=== PATIENT | female | born 1980 | race Two or more races ===

== ENCOUNTER 2017-08-21 18:48 | Emergency (ER) | payer MEDICAID ==
[~2017-08-21] VITALS: Ht 172.7 cm; Wt 117.9 kg
[~2017-08-21 18:48] MED LIST: GEM600T GT; LIS10T GT; METO25TA62 PO
[2017-08-21 21:18] VITALS: BP 143/58
== END 2017-08-21 21:43 | disposition home or self-care (01) ==
LOC: ER 18:48
DX: O26.891 Other specified pregnancy related conditions, first trimester (principal); K02.9 Dental caries, unspecified; O16.1 Unspecified maternal hypertension, first trimester; E78.5 Hyperlipidemia, unspecified; Z3A.11 11 weeks gestation of pregnancy; Z79.899 Other long term (current) drug therapy; Z90.49 Acquired absence of other specified parts of digestive tract; Z87.440 Personal history of urinary (tract) infections

== ENCOUNTER 2017-10-07 09:44 | Emergency (ER) | payer MEDICAID ==
[~2017-10-07] VITALS: Ht 172.7 cm; Wt 117.9 kg
[2017-10-07 10:47] LABS: Basophils # (auto) 0 uL; Basophils % (auto) 0.2 % (0.0-2.0); Eosinophils # (auto) 0.1 uL; Eosinophils % (auto) 0.8 % (0.0-7.0); Hematocrit 32.9 % (36.0-46.0); Lymphocytes # (auto) 1.7 uL; Lymphocytes % (auto) 22.7 % (10.0-50.0); Mean Corpuscular Hemoglobin 31.2 pg (28.0-32.0); Mean Corpuscular Hgb Conc. 33.4 g/dL (32.0-36.0); Mean Corpuscular Volume 93.5 fL (80.0-100.0); Monocytes # (auto) 0.4 uL; Monocytes % (auto) 5.9 % (0.0-12.0); Neutrophils # (auto) 5.3 uL; Neutrophils % (auto) 70.4 % (37.0-80.0); Platelet Count (auto) 222 10^3/uL (140-450); Red Blood Cells 3.52 10^6/uL (4.0-5.20); White Blood Cell 7.5 10^3/uL (4.4-10.8)
[2017-10-07 10:52] LABS: Albumin 2.6 g/dL (3.4-5.0); BUN/Creatinine Ratio 23.5; Bilirubin, Total 0.2 mg/dL (0.2-1.0); Calcium 8.4 mg/dL (8.5-10.1); Potassium 3.9 mmol/L (3.5-5.1); Total Protein 6.9 g/dL (6.4-8.2)
[2017-10-07 11:50] LABS: Urine Bacteria NONE SEEN /hpf (None Seen); Urine Blood Negative /uL (Negative); Urine Specific Gravity 1.014 (1.001-1.035); Urine WBC <1 /hpf (0 - 5)
[2017-10-07 18:23] VITALS: BP 112/60
== END 2017-10-07 18:27 | disposition home or self-care (01) ==
LOC: ER 09:44
DX: O25.12 Malnutrition in pregnancy, second trimester (principal); O26.892 Other specified pregnancy related conditions, second trimester; O16.2 Unspecified maternal hypertension, second trimester; E78.5 Hyperlipidemia, unspecified; Z90.49 Acquired absence of other specified parts of digestive tract; Z3A.18 18 weeks gestation of pregnancy; Z68.39 Body mass index [BMI] 39.0-39.9, adult
CPT/HCPCS: 36415; 76805; 80053; 81001; 84702; 85025

== ENCOUNTER 2022-06-06 18:37 | Emergency (ER) | payer MEDICAID ==
[~2022-06-06] VITALS: Ht 170.2 cm; Wt 91.5 kg
[~2022-06-06 18:37] MED LIST changes: -METO25TA62 PO; +METO25TA93 PO
[2022-06-06 19:53] VITALS: BP 124/79
== END 2022-06-06 20:55 | disposition left against medical advice (07) ==
LOC: ER 18:38
DX: E78.5 Hyperlipidemia, unspecified (principal); I10 Essential (primary) hypertension; Z90.49 Acquired absence of other specified parts of digestive tract; Z71.1 Person with feared health complaint in whom no diagnosis is made

== ENCOUNTER 2023-02-16 15:53 | Emergency (ER) | payer MEDICAID ==
[~2023-02-16] VITALS: Ht 170.2 cm; Wt 87.6 kg
[~2023-02-16 15:53] MED LIST changes: +AMOX500T86 PO; +TRAM50TA2 PO
[2023-02-16 16:02] VITALS: BP 130/71
[2023-02-16] MEDS ORDERED: KETOROLAC TROMETH 30 MG/ML 1ML VIAL IM ONE (17:15)
[2023-02-16] MEDS ORDERED: AMOX-277 PO (17:49)
[2023-02-16] MEDS ORDERED: IBUP800T26 PO (17:49)
[2023-02-16] MEDS ORDERED: ACE3T PO (17:49)
== END 2023-02-16 19:08 | disposition home or self-care (01) ==
LOC: ER 15:53
DX: S52.501A Unspecified fracture of the lower end of right radius, initial encounter for closed fracture (principal); S61.511A Laceration without foreign body of right wrist, initial encounter; E78.5 Hyperlipidemia, unspecified; I10 Essential (primary) hypertension; Z90.49 Acquired absence of other specified parts of digestive tract; Z88.1 Allergy status to other antibiotic agents; W54.0XXA Bitten by dog, initial encounter; Y93.89 Activity, other specified; Y92.89 Other specified places as the place of occurrence of the external cause; Y99.8 Other external cause status
CPT/HCPCS: 29125; 73110; 73120; 96372; 99284; J1885

== ENCOUNTER 2023-02-21 16:32 | Inpatient (IN) | payer MEDICAID ==
[~2023-02-21] VITALS: Ht 170.2 cm; Wt 95.3 kg
[~2023-02-21 16:32] MED LIST changes: +ACE3T PO; +AMOX-277 PO; +IBUP800T26 PO
[2023-02-21 17:50] LABS: Basophils # (auto) 0 10 ^3/uL (0-0.2); Basophils % (auto) 0.6 % (0.0-2.0); Eosinophils # (auto) 0.2 10 ^3/uL (0-0.8); Eosinophils % (auto) 2.1 % (0.0-7.0); Hematocrit 25.5 % (36.0-46.0); Lymphocytes # (auto) 1.3 10 ^3/uL (0.4-5.4); Lymphocytes % (auto) 18.2 % (10.0-50.0); Mean Corpuscular Hemoglobin 22.8 pg (28.0-32.0); Mean Corpuscular Hgb Conc. 31.5 g/dL (32.0-36.0); Mean Corpuscular Volume 72.3 fL (80.0-100.0); Monocytes # (auto) 0.6 10 ^3/uL (0-1.3); Monocytes % (auto) 8.5 % (0.0-12.0); Neutrophils # (auto) 5.2 10 ^3/uL (1.6-8.6); Neutrophils % (auto) 70.6 % (37.0-80.0); Nucleated Red Blood Cells % 0.1 %; Red Blood Cells 3.52 10^6/uL (4.0-5.20); Red Cell Distribution Width 17.3 % (11.8-14.3); White Blood Cell 7.3 10^3/uL (4.4-10.8)
[2023-02-21 18:17] LABS: Albumin 3.1 g/dL (3.4-5.0); Calcium 8.5 mg/dL (8.5-10.1); Potassium 3.4 mmol/L (3.5-5.1)
[2023-02-21 18:20] LABS: BUN/Creatinine Ratio 31.3 (10.0-20.0); Bilirubin, Total 0.2 mg/dL (0.2-1.0); Total Protein 7.5 g/dL (6.4-8.2)
[2023-02-21] MEDS ORDERED: cefTRIAXone 1GM/50ML D5W 50 ML IV ONE (20:45)
[2023-02-21] MEDS ORDERED: metroNIDAZOLE 500MG/100ML 100 ML IV ONE (20:45)
[2023-02-21] MEDS ORDERED: TEMAZEPAM 15 MG CAP PO PRN (21:45)
[2023-02-21] MEDS ORDERED: HYDROcodone-ACET 5/325MG TAB PO PRN (21:45)
[2023-02-21] MEDS ORDERED: ACETAMINOPHEN 325 MG TAB PO PRN (21:45)
[2023-02-21] MEDS ORDERED: ONDANSETRON HCL 4 MG/2 ML VIAL IV PRN (21:45)
[2023-02-21] MEDS ORDERED: CLINDAMYCIN 600MG IV 50 ML IV SCH (22:00)
[2023-02-22 00:18] VITALS: BP 116/70
[2023-02-22 05:00] VITALS: BP 117/68
[2023-02-22 05:43] LABS: Basophils # (auto) 0 10 ^3/uL (0-0.2); Eosinophils # (auto) 0.2 10 ^3/uL (0-0.8); Hemoglobin 7.5 g/dL (12.2-16.2); Lymphocytes # (auto) 1.5 10 ^3/uL (0.4-5.4); Mean Corpuscular Volume 72.7 fL (80.0-100.0); Neutrophils # (auto) 3.3 10 ^3/uL (1.6-8.6); White Blood Cell 5.4 10^3/uL (4.4-10.8)
[2023-02-22 05:46] LABS: Basophils % (auto) 0.5 % (0.0-2.0); Hematocrit 23.7 % (36.0-46.0); Lymphocytes % (auto) 26.9 % (10.0-50.0); Mean Corpuscular Hemoglobin 22.9 pg (28.0-32.0); Mean Corpuscular Hgb Conc. 31.6 g/dL (32.0-36.0); Monocytes # (auto) 0.5 10 ^3/uL (0-1.3); Neutrophils % (auto) 60.6 % (37.0-80.0); Nucleated Red Blood Cells % 0.2 %; Red Blood Cells 3.26 10^6/uL (4.0-5.20); Red Cell Distribution Width 17.1 % (11.8-14.3)
[2023-02-22 05:51] LABS: Calcium 8.1 mg/dL (8.5-10.1); Potassium 3.6 mmol/L (3.5-5.1)
[2023-02-22] MEDS ORDERED: VANCOMYCIN PER PHARMACY 0 MG IV SCH (08:30)
[2023-02-22] MEDS ORDERED: VANCOMYCIN 1GM/250ML 250 ML IV ONE (08:45)
[2023-02-22 09:00] VITALS: BP 127/75
[2023-02-22] MEDS ORDERED: PANTOPRAZOLE 40 MG TAB PO SCH (10:00)
[2023-02-22] MEDS: LISINOPRIL 10 MG TAB PO SCH (10:12)
[2023-02-22] MEDS ORDERED: TETANUS-DIPTH-ACEL PERTUSSIS 0.5ML SYR Tdap IM ONE (12:30)
[2023-02-22 12:34] LABS: % Iron Saturation 4.2 % (15-50)
[2023-02-22 13:00] VITALS: BP 117/62
[2023-02-22 15:43] LABS: Alcohol, Urine < 3.0 mg/dL (0-10); Amphetamine Screen, Urine POSITIVE (NEGATIVE); Barbiturate Scree,Urine NEGATIVE (NEGATIVE); Cannabinoid Screen, Urine NEGATIVE (NEGATIVE); Cocaine Screen, Urine NEGATIVE (NEGATIVE)
[2023-02-22 15:55] LABS: Benzodiazephine Screen, Urine NEGATIVE (NEGATIVE); Opiate Scree,Urine NEGATIVE (NEGATIVE); Phencyclidine Screen, Urine NEGATIVE (NEGATIVE)
[2023-02-22] MEDS: cefTRIAXone 1GM/50ML D5W 50 ML IV SCH (16:40)
[2023-02-22 17:00] VITALS: BP 97/52
[2023-02-22 18:08] LABS: Urine Bacteria NONE SEEN /hpf (None Seen); Urine Blood Negative /uL (Negative); Urine Hyaline Cast FEW /lpf (0 - 2); Urine Mucus FEW (None Seen); Urine Specific Gravity 1.027 (1.001-1.035); Urine WBC 34 /hpf (0 - 5)
[2023-02-22] MEDS: VANCOMYCIN 1GM/250ML 250 ML IV SCH (20:41)
[2023-02-22 22:00] VITALS: BP 103/57
[2023-02-23 05:00] VITALS: BP 110/62
[2023-02-23 05:40] LABS: Basophils # (auto) 0 10 ^3/uL (0-0.2); Basophils % (auto) 0.7 % (0.0-2.0); Eosinophils # (auto) 0.2 10 ^3/uL (0-0.8); Lymphocytes # (auto) 1.6 10 ^3/uL (0.4-5.4); Monocytes # (auto) 0.5 10 ^3/uL (0-1.3)
[2023-02-23 05:42] LABS: Eosinophils % (auto) 3.2 % (0.0-7.0); Hematocrit 25.7 % (36.0-46.0); Hemoglobin 8.2 g/dL (12.2-16.2); Mean Corpuscular Hemoglobin 23.1 pg (28.0-32.0); Mean Corpuscular Hgb Conc. 31.9 g/dL (32.0-36.0); Mean Corpuscular Volume 72.6 fL (80.0-100.0); Monocytes % (auto) 7.9 % (0.0-12.0); Neutrophils % (auto) 63.2 % (37.0-80.0); Nucleated Red Blood Cells % 0.1 %; Red Blood Cells 3.54 10^6/uL (4.0-5.20); Red Cell Distribution Width 17.4 % (11.8-14.3); White Blood Cell 6.4 10^3/uL (4.4-10.8)
[2023-02-23 05:44] LABS: BUN/Creatinine Ratio 29.2 (10.0-20.0); Calcium 8.4 mg/dL (8.5-10.1); Potassium 3.7 mmol/L (3.5-5.1)
[2023-02-23] MEDS: VANCOMYCIN 1GM/250ML 250 ML IV SCH ×2 (06:09→16:00)
[2023-02-23 08:00] VITALS: BP 134/77
[2023-02-23] MEDS: LISINOPRIL 10 MG TAB PO SCH (09:08)
[2023-02-23] MEDS: cefTRIAXone 1GM/50ML D5W 50 ML IV SCH (09:08)
[2023-02-23 12:00] VITALS: BP 114/62
[2023-02-23] MEDS ORDERED: BACDST PO (14:14)
[2023-02-23 16:00] VITALS: BP 106/65
== END 2023-02-23 17:50 | disposition home or self-care (01) | DRG 383 ==
LOC: ER 16:32 → OVERFLOW 21:46 → CENTRAL 23:29
PROVIDERS: ADMIT Nurse Practitioner; ATTEND Hospitalist
DX: L03.113 Cellulitis of right upper limb (principal); F17.210 Nicotine dependence, cigarettes, uncomplicated; I10 Essential (primary) hypertension; W54.0XXA Bitten by dog, initial encounter; Z23 Encounter for immunization; Z98.84 Bariatric surgery status; Y93.89 Activity, other specified; Y92.89 Other specified places as the place of occurrence of the external cause; Y99.8 Other external cause status
CPT/HCPCS: 36415; 73110; 80048; 80053; 80202; 80307; 81001; 82728; 83540; 83550; 84702; 85025; 87040; 87205; 90715; 96365; 96366; 96367; G0378; J0696; J3490